=== PATIENT | female | born 1960 | race Caucasian/White ===

== ENCOUNTER 2016-12-11 09:04 | Outpatient (CLI) | payer OTHER ==
--- NOTE | 2016-12-11 09:39 | DIAGNOSTIC IMAGING REPORT ---
PROCEDURE: XR LUMBAR SPINE 2 OR 3 VIEWS INDICATION: CHRONIC BACK PAIN, RA TECHNIQUE: Three views. COMPARISON: None. FINDINGS: Osseous structures and disc spaces are normal. No evidence of an acute process or fracture. IMPRESSION: 1. Negative lumbar spine.
== END 2016-12-11 23:00 ==
LOC: XR SRH 09:04
DX: M54.5 Low back pain (principal); M06.9 Rheumatoid arthritis, unspecified